=== PATIENT | female | born 1970 | race Caucasian/White ===

== ENCOUNTER 2021-02-11 09:15 | Day surgery (SDC) | payer OTHER ==
[~2021-02-11] VITALS: Ht 162.6 cm; Wt 127.3 kg
[~2021-02-11 09:15] MED LIST: AMOXICILLIN875 MG PO; HYDROCHLOROTHIA25 MG PO; LIPITOR10 MG PO; NORCO 5-325 TA1 EACH PO; OFLOXACIN5 ML OU; PREDNISOLON5 MG/5 M1 PO; VERAPAMIL HCL120 MG PO; WELLBUTRIN XL300 MG PO
[2021-02-11] MEDS ORDERED: VITAMIN D350 MC3 PO (09:31)
[2021-02-11] MEDS ORDERED: SPIRONOLACTONE25 MG PO (09:31)
[2021-02-11] MEDS ORDERED: LEVOTHYROXINE75 MC1 PO (09:32)
--- NOTE | 2021-02-11 10:43 | NUR ---
02/11/21 Kiara3 Олег Molina RESPONDS TO VOICE ON ENTRY TO PACU. DENIES NAUSEA OR PAIN. FALLS ASLEEPEASILY.
--- NOTE | 2021-02-12 06:55 | OR ---
[facility] [address], [place] [address] Signed DATE OF OPERATION: 02/11/2021 SURGEON: Michael Holly MD PREOPERATIVE DIAGNOSES: 1. Screening. 2. Half brother with ulcerative colitis at age 6 and of ulcerative colitis at age 35. POSTOPERATIVE DIAGNOSES: 1. Minimal sigmoid diverticulosis. 2. Minimal internal hemorrhoids. PROCEDURE: Colonoscopy without biopsy. ESTIMATED BLOOD LOSS: None. INDICATIONS: Corine is a 50-year-old obese female, asked to see me for her initial screening colonoscopy. She has no lower GI complaints. There is no family history of colon cancer or polyps. She explained that her half brother was diagnosed around age 6 with ulcerative colitis. He around age 35 from the ulcerative colitis. In the office I gave Corine pamphlet on colonoscopy. She understands the nature of the test along with its risks including, but not limited to gas bloating, crampy abdominal pain, bleeding, perforation requiring surgery, and missed diagnosis. She also understands the need for IV conscious sedation. She had expressed understanding and wished to proceed. PROCEDURE NOTE: Corine was taken into our endoscopy suite and placed in the left lateral decubitus position. She was given IV sedation with 5 mg of Versed and 125 mcg of fentanyl. A digital rectal exam was performed and this was unremarkable. The adult colonoscope was introduced and advanced under direct visualization of the camera without difficulty into the cecum. We found a few areas of liquid particulate stool matter. Most of that was irrigated and suctioned out. We could also see the appendiceal orifice and the ileocecal valve. We took several pictures throughout for photodocumentation. The scope had been slowly withdrawn. She has very shallow tiny diverticula in the sigmoid colon. They were quite small and few in number, and scattered about. The rectum was unremarkable. Upon retroflexion of scope, she has very minimal internal hemorrhoid Electronically Signed By: MICHAEL HOLLY MD 02/12/21 0655 PATIENT NAME: CORINE ZIMMERMAN OPERATIVE REPORT DATE OF : 66 REPORT #: [id number] PHYSICIAN: MICHAEL HOLLY MD PCP: ALISA BARNETT REPORT IS CONFIDENTIAL AND NOT TO BE RELEASED WITHOUT AUTHORIZATION [address] [address] Signed columns. After this, the gas was suctioned out and colonoscope removed. Corine tolerated her procedure quite well. RECOMMENDATIONS: Corine can return in 10 years for a repeat colonoscopy. She might consider a double bowel prep in the future. MD SHYLA Stafford/CLAUDETTEL /[id number] cc: LILIA Bassett MD Copies: ALISA BARNETT ANDREW L MD ~ Electronically Signed By: MICHAEL HOLLY MD 02/12/21 0655 PATIENT NAME: CORINE ZIMMERMAN OPERATIVE REPORT DATE OF : 66 REPORT #: [id number] PHYSICIAN: MICHAEL HOLLY MD PCP: ALISA BARNETT REPORT IS CONFIDENTIAL AND NOT TO BE RELEASED WITHOUT AUTHORIZATION
== END 2021-02-11 11:18 | disposition home or self-care (01) ==
LOC: OPS 09:15 → DS 09:15 → OPS 10:30 → DS 10:30 → OPS 11:18
PROVIDERS: ATTEND Colon & Rectal Surgery
PROC: 0DJD8ZZ Inspection of Lower Intestinal Tract, Via Natural or Artificial Opening Endoscopic (ICD-10-PCS; principal; 2021-02-11 10:30)
DX: Z12.11 Encounter for screening for malignant neoplasm of colon (principal); I10 Essential (primary) hypertension; E78.5 Hyperlipidemia, unspecified; E03.9 Hypothyroidism, unspecified; E55.9 Vitamin D deficiency, unspecified; K57.30 Diverticulosis of large intestine without perforation or abscess without bleeding; K64.8 Other hemorrhoids; Z88.1 Allergy status to other antibiotic agents
CPT/HCPCS: 99153; G0500; J2250; J3010; J7121